=== PATIENT | female | born 1940 | race Caucasian/White ===

== ENCOUNTER 2017-05-21 06:54 | Day surgery (SDC) | payer MEDICARE ==
[~2017-05-21] VITALS: Ht 162.6 cm; Wt 103.9 kg
[~2017-05-21 06:54] MED LIST: AMIT25TA9 PO; AMLO5TAB2 PO; BISO5TAB2 PO; FURO20TA4 PO; LOSA1TAB37 PO; OMEP20CA10 PO; SIMV20TA6 PO; SODIUM CHLORIDE 0.9% 1000ML 1,000 ML IV ONE
[2017-05-21 07:00] VITALS: BP 155/79
[2017-05-21] MEDS ORDERED: PROPOFOL 10 MG/ML 20ML VIAL IV ONE (09:20)
[2017-05-21] MEDS ORDERED: FENTANYL CITRATE PF 50 MCG/1 ML 2ML VIAL ONE (09:20)
[2017-05-21 09:32] VITALS: BP 123/52
[2017-05-21] MEDS ORDERED: ASPI-555 PO (09:59)
== END 2017-05-21 10:05 ==
LOC: DAH 06:54
PROVIDERS: ATTEND Internal Medicine Gastroenterology
DX: K22.70 Barrett's esophagus without dysplasia (principal); K21.9 Gastro-esophageal reflux disease without esophagitis; I10 Essential (primary) hypertension; E78.5 Hyperlipidemia, unspecified; Z79.899 Other long term (current) drug therapy
CPT/HCPCS: 43239; 88305; 93005; A4606; J2704; J3010; J7030

== ENCOUNTER → 2019-06-21 | Outpatient (CLI) | payer MEDICARE ==
[~2019-06-21] MED LIST changes: -AMLO5TAB2 PO; +AMLO5TAB9 PO; +BISO5TAB19 PO; -BISO5TAB2 PO; -OMEP20CA10 PO; +OMEP20CA12 PO; +REGADENOSON 0.4 MG/5 ML PF SYG IVP SCH; +SIMV-43 PO; -SIMV20TA6 PO; -SODIUM CHLORIDE 0.9% 1000ML 1,000 ML IV ONE
== END | disposition home or self-care (01) ==
LOC: SHCH 08:02
PROVIDERS: ATTEND Internal Medicine Cardiovascular Disease
DX: I25.89 Other forms of chronic ischemic heart disease (principal)
CPT/HCPCS: 78452; 93017; 96374; A9500 ×2; J2785

== ENCOUNTER → 2020-01-31 | Outpatient (CLI) | payer MEDICARE ==
[~2020-01-31] MED LIST changes: +AMLO-257 PO; -AMLO5TAB9 PO; -BISO5TAB19 PO; -LOSA1TAB37 PO; +LOSA50TA64 PO; +METO100T14 PO; -REGADENOSON 0.4 MG/5 ML PF SYG IVP SCH
[2020-01-31 14:40] LABS: CREATININE 0.9 mg/dL (0.5-1.5)
== END | disposition home or self-care (01) ==
LOC: LAB 14:09
PROVIDERS: ATTEND Otolaryngology Plastic Surgery within the Head & Neck
DX: R49.8 Other voice and resonance disorders (principal); J38.01 Paralysis of vocal cords and larynx, unilateral
CPT/HCPCS: 36415; 82565; 84520

== ENCOUNTER → 2020-02-02 | Outpatient (CLI) | payer MEDICARE ==
[~2020-02-02] MED LIST changes: +IOHEXOL-350 50ML VIAL IV ONE
== END | disposition home or self-care (01) ==
LOC: RAH 12:30
PROVIDERS: ATTEND Otolaryngology Plastic Surgery within the Head & Neck
DX: E04.2 Nontoxic multinodular goiter (principal); R49.8 Other voice and resonance disorders; J38.01 Paralysis of vocal cords and larynx, unilateral; E07.9 Disorder of thyroid, unspecified
CPT/HCPCS: 70470; 76536; Q9967

== ENCOUNTER → 2020-03-10 | Outpatient (CLI) | payer MEDICARE ==
[~2020-03-10] MED LIST changes: -IOHEXOL-350 50ML VIAL IV ONE
[2020-03-10 08:56] LABS: INR 1.03 (0.85-1.15); PARTIAL THROMBOPLASTIN TIME 26.8 SEC (26.3-35.5); PROTHROMBIN TIME 11.1 SEC (9.6-11.6)
--- NOTE | 2020-03-10 09:38 | NUR ---
US GUIDED FNA OF LEFT THYROID NODULE PROCEDURE PERFORMED BY DR. MEDINA. PUNCTURE SITE LEFT LATERAL NECK AND PATIENT TOLERATED PROCEDURE WELL. SPECIMEN X 4 COLLECTED AND COLLECTED BY MORE [facility] TECH AND DR. DIANA PRESENT. NEEDLE REMOVED AND DRESSING APPLIED. NO BLEEDING NOTED. DISCHARGE INSTRUCTIONS GIVEN TO PATIENT AND VERBALIZED UNDERSTANDING. DISCHARGED AMBULATORY STABLE, AAO X 3 WITH NO C/O PAIN.
== END ==
LOC: RAH 07:41
PROVIDERS: ATTEND Otolaryngology Plastic Surgery within the Head & Neck
DX: E04.1 Nontoxic single thyroid nodule (principal); Z79.01 Long term (current) use of anticoagulants
CPT/HCPCS: 10005; 36415; 60100; 76942; 85610; 85730; 88173; 88305

== ENCOUNTER → 2020-03-13 | Outpatient (CLI) | payer MEDICARE | END | disposition home or self-care (01) | LOC: RAH 15:49 | PROVIDERS: ATTEND Otolaryngology Plastic Surgery within the Head & Neck | DX: R49.8 Other voice and resonance disorders (principal); R49.0 Dysphonia | CPT/HCPCS: 71046 ==

== ENCOUNTER → 2020-05-18 | Outpatient (CLI) | payer MEDICARE | END | disposition home or self-care (01) | LOC: RAH 12:59 | PROVIDERS: ATTEND Internal Medicine Cardiovascular Disease | DX: I67.82 Cerebral ischemia (principal) | CPT/HCPCS: 70450 ==

== ENCOUNTER → 2020-11-10 | Outpatient (CLI) | payer MEDICARE | END | disposition home or self-care (01) | LOC: RAH 13:31 | PROVIDERS: ATTEND Internal Medicine Endocrinology, Diabetes & Metabolism | DX: E21.0 Primary hyperparathyroidism (principal); E04.2 Nontoxic multinodular goiter | CPT/HCPCS: 76536; 78070; A9500 ==

== ENCOUNTER → 2021-01-26 | Outpatient (CLI) | payer MEDICARE | END | disposition home or self-care (01) | LOC: SHCH 13:58 | PROVIDERS: ATTEND Internal Medicine Cardiovascular Disease | DX: I48.20 Chronic atrial fibrillation, unspecified (principal); I08.0 Rheumatic disorders of both mitral and aortic valves; I31.3 Pericardial effusion (noninflammatory); I51.7 Cardiomegaly | CPT/HCPCS: 93306 ==

== ENCOUNTER → 2021-04-02 | Outpatient (CLI) | payer MEDICARE | END | disposition home or self-care (01) | LOC: SHCH 09:27 | PROVIDERS: ATTEND Internal Medicine Cardiovascular Disease | DX: I08.1 Rheumatic disorders of both mitral and tricuspid valves (principal); I42.9 Cardiomyopathy, unspecified; I31.3 Pericardial effusion (noninflammatory); I10 Essential (primary) hypertension; E78.5 Hyperlipidemia, unspecified | CPT/HCPCS: 93306; 93356 ==

== ENCOUNTER → 2021-05-10 | Outpatient (CLI) | payer MEDICARE | END | disposition home or self-care (01) | LOC: SHCH 10:08 | PROVIDERS: ATTEND Internal Medicine Cardiovascular Disease | DX: I08.3 Combined rheumatic disorders of mitral, aortic and tricuspid valves (principal); I11.9 Hypertensive heart disease without heart failure; I31.3 Pericardial effusion (noninflammatory); E78.5 Hyperlipidemia, unspecified | CPT/HCPCS: 93306 ==

== ENCOUNTER → 2022-07-18 | Outpatient (CLI) | payer MEDICARE ==
[2022-07-18 14:13] LABS: CREATININE 0.9 mg/dL (0.5-1.5); POTASSIUM 3.6 mmol/L (3.5-5.1)
== END | disposition home or self-care (01) ==
LOC: LAB 10:46
PROVIDERS: ATTEND Internal Medicine Cardiovascular Disease
DX: I10 Essential (primary) hypertension (principal)
CPT/HCPCS: 36415; 80048

== ENCOUNTER → 2023-01-07 | Outpatient (CLI) | payer MEDICARE | END | disposition home or self-care (01) | LOC: RAH 15:30 | PROVIDERS: ATTEND Clinical Nurse Specialist Family Health | DX: M19.032 Primary osteoarthritis, left wrist (principal); M19.031 Primary osteoarthritis, right wrist; M25.531 Pain in right wrist; M25.532 Pain in left wrist | CPT/HCPCS: 73110 ==

== ENCOUNTER 2023-10-23 08:59 | Emergency (ER) | payer MEDICARE ==
[~2023-10-23] VITALS: Ht 162.6 cm; Wt 79.8 kg
[2023-10-23] MEDS: MORPHINE 4 MG SYG IM ONE (10:23)
[2023-10-23] MEDS: ORPHENADRINE 60MG/2ML IM ONE (10:23)
[2023-10-23] MEDS: DIAZEPAM 2 MG TAB PO ONE (12:15)
[2023-10-23] MEDS: LIDOCAINE 5% TOPICAL PATCH TP ONE (12:23)
[2023-10-23] MEDS ORDERED: ACET-2079 PO (13:33)
[2023-10-23] MEDS ORDERED: DIAZ2TAB PO (13:33)
[2023-10-23 14:15] VITALS: BP 130/71; PULSE 78; RESP 18; O2SAT 98
== END 2023-10-23 14:15 | disposition home or self-care (01) ==
LOC: EDH 08:59
DX: M43.6 Torticollis (principal); I11.0 Hypertensive heart disease with heart failure; I50.9 Heart failure, unspecified; I48.91 Unspecified atrial fibrillation; Z79.899 Other long term (current) drug therapy; Z98.890 Other specified postprocedural states
CPT/HCPCS: 99285; 72125; 96372 ×2; J2270; J2360

== ENCOUNTER → 2023-11-12 | Outpatient (CLI) | payer MEDICARE ==
[~2023-11-12] MED LIST changes: +ACET-2079 PO; +DIAZ2TAB PO
== END | disposition home or self-care (01) ==
LOC: RAH 12:41
PROVIDERS: ATTEND Internal Medicine
DX: M47.22 Other spondylosis with radiculopathy, cervical region (principal); M48.02 Spinal stenosis, cervical region
CPT/HCPCS: 72141

== ENCOUNTER → 2025-03-23 | Outpatient (CLI) | payer MEDICARE ==
[~2025-03-23] MED LIST changes: +AMIT25TA21 PO; -AMIT25TA9 PO
[2025-03-23] MEDS: REGADENOSON 0.4 MG/5 ML PF SYG IVP ONE (13:35)
--- NOTE | 2025-03-24 07:10 | HMCSR ---
APPROVED REPORT Height: 5 ft 5in Weight: 175 lbs TEST INDICATIONS Chest Pain The imaging protocol used to acquire images was Rest Tc-99m/stress Tc-99m 1 day Consent: The procedure was explained and understood by the patient. Informerd consent was witnessed by Mechelle Ortiz RN First, low dose rest was performed then high dose stress. RESTING DATA: The resting ekg shows: NSR Rest SPECT myocardial perfusion imaging was performed in supine position minutes following the intravenous injection of 10.5 mCi of Tc-99 Sestamibi. Time of rest injection: 08:43: Date: 03/23/2025 PHARMACOLOGIC STRESS: Pharmacologic stress test was performed by injecting regadenoson 0.4 mg IV push followed by the intravenous injection of 29 mCi of Tc-99 Sestamibi. Time of stress injection: 10:36: Date: 03/23/2025 Heart Rate at time of stress injection: 125 bpm. Gated Stress SPECT was performed 60 minutes after stress injection. The images were gated to evaluate regional wall motion and calculate left ventricular ejection fraction. 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 LV ejection fraction of 51%. Normal LV size at rest and stress No evidence of increased lung uptake Normal LV wall motion There may be more viability in the anterior wall then demonstrated on this exam given normal LV wall motion.
== END | disposition home or self-care (01) ==
LOC: RAH 08:23
PROVIDERS: ATTEND Internal Medicine Cardiovascular Disease
DX: I10 Essential (primary) hypertension (principal); R07.9 Chest pain, unspecified
CPT/HCPCS: 78452; 93017; J2785; A9500 ×2